=== PATIENT | male | born 1945 | race Asian ===

== ENCOUNTER → 2017-10-16 | Outpatient (CLI) | payer MEDICARE, OTHER ==
[~2017-10-16] MED LIST: ADV250 IH; ALBU8HFA IH; BP MED; LOSA25TA21 PO
== END | disposition home or self-care (01) ==
LOC: RADPV 09:40
PROVIDERS: ATTEND Family Medicine
DX: I70.0 Atherosclerosis of aorta (principal); M47.894 Other spondylosis, thoracic region
CPT/HCPCS: 71020

== ENCOUNTER → 2019-03-01 | Outpatient (CLI) | payer MEDICARE, OTHER ==
[~2019-03-01] MED LIST changes: -LOSA25TA21 PO; +LOSA25TA41 PO
== END | disposition home or self-care (01) ==
LOC: RADPV 11:13
PROVIDERS: ATTEND Family Medicine
DX: R05 Cough (principal); I70.0 Atherosclerosis of aorta

== ENCOUNTER → 2019-05-10 | Outpatient (CLI) | payer MEDICARE, OTHER | END | disposition home or self-care (01) | LOC: RADPV 10:28 | PROVIDERS: ATTEND Family Medicine | DX: R05 Cough (principal); I70.0 Atherosclerosis of aorta ==

== ENCOUNTER → 2021-10-18 | Outpatient (CLI) | payer MEDICARE, OTHER ==
[~2021-10-18] MED LIST changes: -ADV250 IH; +FLUT1DIS6 IH; +LOSA25TA21 PO; -LOSA25TA41 PO
== END | disposition home or self-care (01) ==
LOC: RADPV 08:53
PROVIDERS: ATTEND Family Medicine
DX: K80.20 Calculus of gallbladder without cholecystitis without obstruction (principal); R10.2 Pelvic and perineal pain
CPT/HCPCS: 76700; 76856

== ENCOUNTER → 2022-07-01 | Outpatient (CLI) | payer MEDICARE, OTHER ==
[~2022-07-01] MED LIST changes: +LOSA-381 PO; -LOSA25TA21 PO
== END | disposition home or self-care (01) ==
LOC: RADMN 11:21
PROVIDERS: ATTEND Family Medicine
DX: R05.9 Cough, unspecified (principal); M47.814 Spondylosis without myelopathy or radiculopathy, thoracic region
CPT/HCPCS: 71046

== ENCOUNTER 2022-12-19 15:17 | Inpatient (IN) | payer MEDICARE, OTHER ==
[~2022-12-19] VITALS: Ht 162.6 cm; Wt 75.4 kg
[2022-12-19] MEDS ORDERED: DICY-1 PO (15:28)
[2022-12-19] MEDS ORDERED: SIMV-261 PO (15:28)
[2022-12-19] MEDS ORDERED: NIFE-129 PO (15:28)
[2022-12-19] MEDS ORDERED: PANT-31 PO (15:28)
[2022-12-19] MEDS ORDERED: NITROGLYCERIN 2% (1 GM=INCH) OINTMENT PACKET TP ONE (15:30)
[2022-12-19] MEDS ORDERED: NITROGLYCERIN 0.4 MG SUBLINGUAL TABLET #25 SL ONE (15:30)
[2022-12-19] MEDS ORDERED: ASPIRIN 325 MG TABLET PO ONE (15:30)
[2022-12-19 15:54] LABS: HEMATOCRIT 43.4 % (41-53); HEMOGLOBIN 14.9 g/dL (13.5-17.5); LYMPHOCYTES # (AUTO) 5.1 K/uL (1.0-4.8); LYMPHOCYTES % (AUTO) 41.2 % (22.0-44.0); MEAN CORPUSCULAR HEMOGLOBIN 30.8 pg (26.0-34.0); MEAN CORPUSCULAR HGB CONC 34.3 G/dL (31.0-37.0); MEAN CORPUSCULAR VOLUME 90 fL (80-100); MONOCYTES # (AUTO) 0.9 K/uL (0.1-1.0); MONOCYTES % (AUTO) 7.5 % (2.0-9.0); NEUTROPHILS % (AUTO) 48.3 % (40.0-70.0); PLATELET COUNT (AUTO) 155 K/uL (150-450); RED BLOOD CELL COUNT(AUTO) 4.84 MIL/uL (4.50-5.90); RED CELL DISTRIBUTION WIDTH 15.3 % (11.5-14.5)
[2022-12-19 16:06] LABS: ANION GAP 13 mmol/L (8-16); CALCIUM, TOTAL 8.9 mg/dL (8.8-10.5); CARBON DIOXIDE 25 mmol/L (22-29); CHLORIDE 101 mmol/L (98-107); CREATININE 1.07 mg/dL (0.60-1.30); GLOMERULAR FILTR. RATE CALC > 60 mL/min (>60); GLUCOSE,RANDOM 219 mg/dL (70-110); POTASSIUM 3.5 mmol/L (3.5-5.1); SODIUM SERUM 139 mmol/L (136-145); UREA NITROGEN, BLOOD 11 mg/dL (7-18)
[2022-12-19 16:07] LABS: COVID AG,FIA SOURCE NASOPHARYNGEAL
[2022-12-19 16:14] LABS: ALANINE AMINOTRANSFERASE 36 U/L (12-78); ALBUMIN 4.4 g/dL (3.4-5.0); ALKALINE PHOSPHATASE 98 U/L (46-116); ASPARTATE AMINOTRANSFERASE 25 U/L (15-37); BILIRUBIN,TOTAL 0.4 mg/dL (0.1-1.0); LIPASE 126 U/L (73-393); TOTAL PROTEIN, SERUM 8.2 g/dL (6.4-8.2)
[2022-12-19 16:15] LABS: PROTHROMBIN TIME 11.1 SEC (9.4-11.6)
[2022-12-19] MEDS ORDERED: MORPHINE SULFATE 4 MG/ML SYRINGE IVP PRN (16:15)
[2022-12-19] MEDS ORDERED: ATORVASTATIN CALCIUM 40 MG TABLET PO ONE (16:15)
[2022-12-19] MEDS ORDERED: ONDANSETRON HCL 4 MG/2 ML VIAL IVP ONE (16:15)
[2022-12-19] MEDS ORDERED: ACETAMINOPHEN 325 MG TABLET PO PRN ×2 (16:15→19:00)
[2022-12-19] MEDS ORDERED: HEPARIN SODIUM,PORCINE 5,000 UNITS/ML VIAL IVP PRN ×3 (16:15)
[2022-12-19] MEDS ORDERED: METOPROLOL TARTRATE 25 MG TABLET PO ONE (16:15)
[2022-12-19] MEDS ORDERED: MORPHINE SULFATE 4 MG/ML SYRINGE IVP ONE (16:15)
[2022-12-19] MEDS ORDERED: HEPARIN SODIUM,PORCINE 5,000 UNITS/ML VIAL IVP ONE (16:15)
[2022-12-19] MEDS ORDERED: HEPARIN SODIUM 25000 UNITS/D5W 250 ML IV PRN (16:15)
[2022-12-19] MEDS ORDERED: 0.9% SODIUM CHLORIDE 10 ML SYRINGE IVP PRN (16:15)
[2022-12-19] MEDS ORDERED: ONDANSETRON HCL 4 MG/2 ML VIAL IVP PRN ×2 (16:15→19:00)
[2022-12-19 16:21] LABS: B-TYPE NATRIURETIC PEPTIDE 20 pg/mL (0-100); LACTIC ACID 2.6 mmol/L (0.4-2.0)
[2022-12-19 16:32] LABS: PLATELET MORPHOLOGY COMMENT GIANT PLTS PRESENT
[2022-12-19 17:50] LABS: APPEARANCE,URINE CLEAR (CLEAR); BILIRUBIN,URINE NEGATIVE (NEGATIVE); GLUCOSE, URINE (UA) 150-200 mg/dL (NEGATIVE); KETONES,URINE NEGATIVE (NEGATIVE); LEUKOCYTE ESTERASE ,URINE NEGATIVE (NEGATIVE); NITRATE,URINE NEGATIVE (NEGATIVE); OCCULT BLOOD,URINE NEGATIVE (NEGATIVE); PH,URINE 6.5 (5.0-8.0); PROTEIN,URINE NEGATIVE (NEGATIVE); SPECIFIC GRAVITIY, URINE 1.011 (1.003-1.030); UROBILINOGEN,URINE <=1.0 mg/dL (<=1.0)
[2022-12-19 17:57] LABS: AMPHET/METH SCREEN,URINE NEGATIVE (NEGATIVE); BARBITURATE SCREEN, URINE NEGATIVE (NEGATIVE); BENZODIAZEPINES SCREEN,URINE NEGATIVE (NEGATIVE); CANNABINOID SCREEN,URINE NEGATIVE (NEGATIVE); COCAINE SCREEN,URINE NEGATIVE (NEGATIVE); METHADONE SCREEN, URINE NEGATIVE (NEGATIVE); OPIATE SCREEN,URINE POSITIVE (NEGATIVE)
[2022-12-19 18:00] LABS: PHENCYCLIDINE SCREEN,URINE NEGATIVE (NEGATIVE)
[2022-12-19 18:09] LABS: BACTERIA,URINE None Seen /HPF (None Seen); RBC,URINE None Seen /HPF (0-2); SQUAMOUS EPITHELIAL CELL,UR None Seen /LPF (None Seen); WBC,URINE None Seen /HPF (0-5)
[2022-12-19] MEDS ORDERED: OxyCODONE HCL/ACETAMINOPHEN 5-325 MG TABLET PO PRN (19:00)
[2022-12-19] MEDS ORDERED: MORPHINE SULFATE 2 MG/ML SYRINGE IVP PRN (19:00)
[2022-12-19 21:00] VITALS: BP 154/78
[2022-12-19] MEDS: DOCUSATE SODIUM 100 MG CAPSULE PO SCH (21:00)
[2022-12-19] MEDS: METOPROLOL TARTRATE 25 MG TABLET PO SCH (22:51)
[2022-12-19] MEDS: FAMOTIDINE 20 MG TABLET PO SCH (22:51)
[2022-12-20 00:49] VITALS: BP 129/70
[2022-12-20 05:12] VITALS: BP 136/71
[2022-12-20 07:39] VITALS: BP 128/65
[2022-12-20] MEDS ORDERED: HEPARIN SODIUM,PORCINE 5,000 UNITS/ML VIAL IVP PRN (08:45)
[2022-12-20] MEDS ORDERED: HEPARIN SODIUM,PORCINE 5,000 UNITS/ML VIAL IVP ONE (08:45)
[2022-12-20] MEDS: DOCUSATE SODIUM 100 MG CAPSULE PO SCH ×2 (09:00→21:30)
[2022-12-20 09:05] LABS: EOSINOPHILS % (AUTO) 1.2 % (1.0-6.0); HEMATOCRIT 41.5 % (41-53); HEMOGLOBIN 14.8 g/dL (13.5-17.5); LYMPHOCYTES # (AUTO) 2.2 K/uL (1.0-4.8); LYMPHOCYTES % (AUTO) 19.6 % (22.0-44.0); MEAN CORPUSCULAR HEMOGLOBIN 31.8 pg (26.0-34.0); MEAN CORPUSCULAR HGB CONC 35.7 G/dL (31.0-37.0); MEAN CORPUSCULAR VOLUME 89 fL (80-100); MONOCYTES # (AUTO) 0.6 K/uL (0.1-1.0); MONOCYTES % (AUTO) 5.6 % (2.0-9.0); NEUTROPHILS % (AUTO) 72.6 % (40.0-70.0); PLATELET COUNT (AUTO) 133 K/uL (150-450); RED BLOOD CELL COUNT(AUTO) 4.66 MIL/uL (4.50-5.90); RED CELL DISTRIBUTION WIDTH 15.3 % (11.5-14.5)
[2022-12-20 09:18] LABS: INR 1.1 (0.9-1.1); PROTHROMBIN TIME 11.6 SEC (9.4-11.6)
[2022-12-20] MEDS: ATORVASTATIN CALCIUM 40 MG TABLET PO SCH (09:52)
[2022-12-20] MEDS: FAMOTIDINE 20 MG TABLET PO SCH ×2 (09:52→21:30)
[2022-12-20] MEDS: METOPROLOL TARTRATE 25 MG TABLET PO SCH ×2 (09:52→21:30)
[2022-12-20 11:02] VITALS: BP 140/68
[2022-12-20] MEDS: ASPIRIN 81 MG CHEWABLE TABLET PO SCH (12:51)
[2022-12-20 14:50] VITALS: BP 123/62
[2022-12-20] MEDS: HEPARIN SODIUM,PORCINE 5,000 UNITS/ML VIAL IVP PRN (15:49)
[2022-12-20 20:20] VITALS: BP 125/66
[2022-12-20] MEDS: HEPARIN SODIUM 25000 UNITS/D5W 250 ML IV PRN (22:29)
[2022-12-21 00:58] VITALS: BP 136/77
[2022-12-21 04:13] VITALS: BP 140/71
[2022-12-21 06:14] LABS: BASOPHILS % (AUTO) 1.1 % (0.0-2.0); EOSINOPHILS % (AUTO) 2.1 % (1.0-6.0); HEMATOCRIT 39.3 % (41-53); HEMOGLOBIN 14.4 g/dL (13.5-17.5); LYMPHOCYTES # (AUTO) 2.3 K/uL (1.0-4.8); LYMPHOCYTES % (AUTO) 21.7 % (22.0-44.0); MEAN CORPUSCULAR HEMOGLOBIN 32.3 pg (26.0-34.0); MEAN CORPUSCULAR HGB CONC 36.6 G/dL (31.0-37.0); MEAN CORPUSCULAR VOLUME 88 fL (80-100); MONOCYTES # (AUTO) 0.9 K/uL (0.1-1.0); MONOCYTES % (AUTO) 8.4 % (2.0-9.0); NEUTROPHILS % (AUTO) 66.7 % (40.0-70.0); PLATELET COUNT (AUTO) 127 K/uL (150-450); RED BLOOD CELL COUNT(AUTO) 4.46 MIL/uL (4.50-5.90); RED CELL DISTRIBUTION WIDTH 14.8 % (11.5-14.5)
[2022-12-21 07:16] VITALS: BP_SYST 132; BP_SYST 160; BP_DIAS 70; BP_DIAS 72
[2022-12-21 07:41] LABS: PLATELET MORPHOLOGY COMMENT GIANT PLTS PRESENT
[2022-12-21] MEDS: METOPROLOL TARTRATE 25 MG TABLET PO SCH ×2 (10:13→21:14)
[2022-12-21] MEDS: DOCUSATE SODIUM 100 MG CAPSULE PO SCH ×2 (10:14→21:14)
[2022-12-21] MEDS: FAMOTIDINE 20 MG TABLET PO SCH ×2 (10:14→21:14)
[2022-12-21] MEDS: ASPIRIN 81 MG CHEWABLE TABLET PO SCH (10:14)
[2022-12-21] MEDS: ATORVASTATIN CALCIUM 40 MG TABLET PO SCH (10:14)
[2022-12-21 10:59] VITALS: BP 164/89
[2022-12-21 15:40] VITALS: BP 144/80
[2022-12-22] VITALS (18 sets, daily range): BP systolic 138–183; BP diastolic 60–86
[2022-12-22] MEDS: HEPARIN SODIUM,PORCINE 5,000 UNITS/ML VIAL IVP PRN (06:34)
[2022-12-22] MEDS: HEPARIN SODIUM 25000 UNITS/D5W 250 ML IV PRN (07:11)
[2022-12-22] MEDS ORDERED: IOHEXOL 300 MG/ML 100 ML VIAL ONE (07:16)
[2022-12-22] MEDS ORDERED: HEPARIN SODIUM 1000 UNITS/NS 1,000 ML ONE (07:16)
[2022-12-22] MEDS ORDERED: SODIUM BICARBONATE 50 MEQ/50 ML VIAL ONE (07:16)
[2022-12-22] MEDS ORDERED: IOHEXOL 300 MG/ML 50 ML VIAL ONE (07:16)
[2022-12-22] MEDS ORDERED: LIDOCAINE/PF 1% 30 ML VIAL ONE (07:16)
[2022-12-22] MEDS ORDERED: VERAPAMIL HCL 2.5 MG/ML 2 ML VIAL ONE (07:54)
[2022-12-22] MEDS ORDERED: FentaNYL CITRATE PF 100 MCG/2 ML VIAL ONE (07:54)
[2022-12-22] MEDS ORDERED: NITROGLYCERIN 50 MG/D5% WATER 250 ML ONE (07:54)
[2022-12-22] MEDS ORDERED: MIDAZOLAM HCL 2 MG/2 ML VIAL ONE (07:54)
[2022-12-22] MEDS ORDERED: HEPARIN SODIUM 1000 UNITS/NS 500 ML ONE (08:57)
[2022-12-22] MEDS ORDERED: HEPARIN SODIUM,PORCINE 1,000 UNITS/ML 10 ML VIAL IVP ONE (09:00)
[2022-12-22] MEDS ORDERED: FentaNYL CITRATE PF 100 MCG/2 ML VIAL IVP ONE (09:00)
[2022-12-22] MEDS ORDERED: NITROGLYCERIN/D5W 50 MG/250 ML IV BOTTLE IARTER ONE (09:00)
[2022-12-22] MEDS ORDERED: IOHEXOL 300 MG/ML 100 ML VIAL IARTER ONE (09:00)
[2022-12-22] MEDS ORDERED: VERAPAMIL HCL 2.5 MG/ML 2 ML VIAL IARTER ONE (09:00)
[2022-12-22] MEDS: ASPIRIN 81 MG CHEWABLE TABLET PO SCH (09:00)
[2022-12-22] MEDS ORDERED: LIDOCAINE 1% 30 ML/SOD BICARB 8.4% 4 ML SQ ONE (09:00)
[2022-12-22] MEDS ORDERED: MIDAZOLAM HCL 2 MG/2 ML VIAL IVP ONE (09:00)
[2022-12-22] MEDS ORDERED: HEPARIN SODIUM 1000 UNITS/NS 1,000 ML IARTER ONE (09:00)
[2022-12-22] MEDS ORDERED: TICAGRELOR 90 MG TABLET ONE (09:06)
[2022-12-22] MEDS ORDERED: EPTIFIBATIDE 2 MG/ML 10 ML VIAL IVP ONE ×2 (09:06→09:30)
[2022-12-22] MEDS ORDERED: TICAGRELOR 90 MG TABLET PO ONE (09:30)
[2022-12-22] MEDS: DOCUSATE SODIUM 100 MG CAPSULE PO SCH ×2 (11:13→21:06)
[2022-12-22] MEDS: FAMOTIDINE 20 MG TABLET PO SCH ×2 (11:13→21:06)
[2022-12-22] MEDS: ATORVASTATIN CALCIUM 40 MG TABLET PO SCH (11:13)
[2022-12-22] MEDS: METOPROLOL TARTRATE 25 MG TABLET PO SCH ×2 (11:13→21:06)
[2022-12-22] MEDS ORDERED: LOSARTAN POTASSIUM 25 MG TABLET PO SCH (21:00)
[2022-12-22] MEDS: TICAGRELOR 90 MG TABLET PO SCH (21:06)
[2022-12-23 08:02] VITALS: BP 154/79
[2022-12-23] MEDS: ASPIRIN 81 MG CHEWABLE TABLET PO SCH (08:05)
[2022-12-23] MEDS: METOPROLOL TARTRATE 25 MG TABLET PO SCH (08:05)
[2022-12-23] MEDS: ATORVASTATIN CALCIUM 40 MG TABLET PO SCH (08:06)
[2022-12-23] MEDS: FAMOTIDINE 20 MG TABLET PO SCH (08:06)
[2022-12-23] MEDS: TICAGRELOR 90 MG TABLET PO SCH (08:06)
[2022-12-23] MEDS: DOCUSATE SODIUM 100 MG CAPSULE PO SCH (09:00)
[2022-12-23] MEDS ORDERED: NIFE-141 PO (11:41)
[2022-12-23] MEDS ORDERED: TICA90TA PO (11:41)
[2022-12-23] MEDS ORDERED: ASPI81 PO (11:41)
[2022-12-23] MEDS ORDERED: METO25 PO (11:41)
== END 2022-12-23 12:06 | disposition home or self-care (01) | DRG 246 ==
LOC: EMS 16:15 → 5S 18:14
PROVIDERS: ADMIT Internal Medicine; ATTEND Internal Medicine
PROC: 4A023N7 Measurement of Cardiac Sampling and Pressure, Left Heart, Percutaneous Approach (ICD-10-PCS; principal; 2022-12-22)
PROC: 027034Z Dilation of Coronary Artery, One Artery with Drug-eluting Intraluminal Device, Percutaneous Approach (ICD-10-PCS; 2022-12-22)
PROC: B2111ZZ Fluoroscopy of Multiple Coronary Arteries using Low Osmolar Contrast (ICD-10-PCS; 2022-12-22)
PROC: 4A033BC Measurement of Arterial Pressure, Coronary, Percutaneous Approach (ICD-10-PCS; 2022-12-22)
DX: I21.4 Non-ST elevation (NSTEMI) myocardial infarction (principal); I50.31 Acute diastolic (congestive) heart failure; I10 Essential (primary) hypertension; E78.5 Hyperlipidemia, unspecified; Z20.822 Contact with and (suspected) exposure to COVID-19; J45.909 Unspecified asthma, uncomplicated; G62.9 Polyneuropathy, unspecified; R73.9 Hyperglycemia, unspecified; Z79.899 Other long term (current) drug therapy; Z63.4 Disappearance and death of family member
CPT/HCPCS: 0501T; 71045; 80053; 80307; 81001; 83605; 83690; 83880; 84484; 85025; 85610; 85730; 92920; 92928; 93005; 93306; 99291; G0480; J1327; J1644; J2250; J2270; J2405; J3010; J3490; Q9967; 36415-L1; 36415-TC; C9803; Z7610